=== PATIENT | male | born 1990 | race Caucasian/White ===

== ENCOUNTER → 2022-08-27 | Outpatient (CLI) | payer OTHER ==
[~2022-08-27] MED LIST: ISOVUE-370 76% 100ML VIAL As Ordered ONE
== END ==
LOC: M RAD 13:05
PROVIDERS: ATTEND Physician Assistant
DX: Z85.47 Personal history of malignant neoplasm of testis (principal); R91.8 Other nonspecific abnormal finding of lung field; Z98.890 Other specified postprocedural states; K76.89 Other specified diseases of liver
CPT/HCPCS: 71260; 74177; Q9967

== ENCOUNTER → 2022-10-06 | Outpatient (CLI) | payer OTHER | LOC: M SLEEP 20:00 | PROVIDERS: ATTEND Physician Assistant | DX: R06.83 Snoring (principal) ==

== ENCOUNTER → 2022-10-08 | Outpatient (CLI) | payer OTHER ==
[2022-10-08 15:11] LABS: COLLAGEN EPINEPHRINE 232 SECONDS (74-162)
[2022-10-08 15:47] LABS: COLLAGEN ADP 172 SECONDS (56-103)
== END ==
LOC: M LAB 14:10
PROVIDERS: ATTEND Physical Medicine & Rehabilitation
DX: Z01.812 Encounter for preprocedural laboratory examination (principal)

== ENCOUNTER → 2022-10-18 | Outpatient (CLI) | payer OTHER ==
[2022-10-18 09:38] LABS: COLLAGEN EPINEPHRINE 181 SECONDS (74-162)
[2022-10-18 10:00] LABS: COLLAGEN ADP 111 SECONDS (56-103)
== END ==
LOC: M LAB 08:35
PROVIDERS: ATTEND Physician Assistant Surgical
DX: Z01.812 Encounter for preprocedural laboratory examination (principal)

== ENCOUNTER → 2023-01-10 | Outpatient (CLI) | payer OTHER ==
[~2023-01-10] MED LIST changes: +TEST200I14 IM
== END ==
LOC: M RAD 10:02
PROVIDERS: ATTEND Urology
DX: Z85.47 Personal history of malignant neoplasm of testis (principal)
CPT/HCPCS: 74177; Q9967

== ENCOUNTER → 2023-07-19 | Outpatient (REF) ==
[~2023-07-19] MED LIST changes: -ISOVUE-370 76% 100ML VIAL As Ordered ONE
== END ==
LOC: M PLAIMG 09:43
PROVIDERS: ATTEND Internal Medicine
DX: R06.02 Shortness of breath (principal); R52 Pain, unspecified; J32.8 Other chronic sinusitis

== ENCOUNTER → 2023-10-10 | Outpatient (CLI) | payer OTHER ==
[~2023-10-10] MED LIST changes: +GASTROGRAFIN SOLUTION 30ML As Ordered ONE; +ISOVUE-370 76% 100ML VIAL As Ordered ONE; +LIDO5DIS41 TOP
== END ==
LOC: M RAD 06:56
PROVIDERS: ATTEND Specialist
DX: C62.90 Malignant neoplasm of unspecified testis, unspecified whether descended or undescended (principal); K56.1 Intussusception; K76.89 Other specified diseases of liver; R59.0 Localized enlarged lymph nodes
CPT/HCPCS: 71260; 74177; Q9963; Q9967